=== PATIENT | female | born 1995 | race Caucasian/White ===

== ENCOUNTER 2022-06-20 08:07 | Inpatient (IN) | payer MEDICAID ==
[~2022-06-20] VITALS: Ht 165.1 cm; Wt 74.4 kg
[2022-06-20] MEDS ORDERED: NALOXONE HCL 0.4 MG/ML 1ML VIAL IM PRN (09:30)
[2022-06-20] MEDS ORDERED: METHYLERGONOVINE MALEATE 0.2 MG/ML IM PRN (09:30)
[2022-06-20] MEDS ORDERED: OXYTOCIN 10 UNITS/ML 1ML ONE (10:27)
[2022-06-20] MEDS ORDERED: SODIUM CHLORIDE 0.9% 10ML VIAL ONE (10:27)
[2022-06-20] MEDS ORDERED: EPHEDRINE SULFATE 50MG/ML VIAL ONE (10:27)
[2022-06-20] MEDS ORDERED: ONDANSETRON HCL 4MG/2ML INJ ONE (10:27)
[2022-06-20] MEDS ORDERED: CEFAZOLIN SODIUM 1000MG/VIAL ONE (10:27)
[2022-06-20] MEDS ORDERED: PHENYLEPHRINE HCL 10 MG/ML 1ML (IV VIAL) IV ONE (10:27)
[2022-06-20] MEDS ORDERED: FENTANYL CITRATE/PF 50MCG/ML 2ML VIAL ONE (10:27)
[2022-06-20] MEDS ORDERED: MORPHINE SULFATE/PF 1MG/ML 10ML AMP ONE (10:27)
[2022-06-20] MEDS ORDERED: DIPHENHYDRAMINE 50MG/ML VIAL ONE (10:27)
[2022-06-20 10:55] LABS: BASOPHILS % 0.4 % (0.0-2.0); EOSINOPHILS % 0.5 % (0.0-5.0); HEMATOCRIT. 35.9 % (36.0-48.0); HEMOGLOBIN. 11.8 g/dL (12.0-16.0); LYMPHOCYTES % 19.1 % (20.0-50.0); MEAN CORPUSCULAR HEMOGLOBIN 29.5 pg (28.0-32.0); MEAN CORPUSCULAR VOLUME 89.6 fL (81.0-99.0); MEAN PLATELET VOLUME 8.1 fl (7.4-10.4); MONOCYTES % 5.6 % (2.0-8.0); NEUTROPHILS % 74.4 % (40.0-76.0); PLATELET 368 x1000/uL (130-400); RED BLOOD CELL COUNT 4.01 mill/uL (4.2-5.4); RED CELL DISTRIBUTION WIDTH 15.5 % (11.6-14.6)
[2022-06-20 11:07] LABS: INR 0.9; PARTIAL THROMBOPLASTIN TIME 29.6 sec (23.4-31.0)
[2022-06-20 11:14] LABS: CLARITY URINE CLOUDY (CLEAR); COLOR URINE YELLOW (YELLOW); KETONES URINE NEGATIVE (NEGATIVE); LEUKOCYTE ESTERASE URINE 3+ (NEGATIVE); NITRITE URINE NEGATIVE (NEGATIVE); OCCULT BLOOD URINE 1+ (NEGATIVE); PROTEIN URINE TRACE (NEGATIVE); UROBILINOGEN URINE 0.2 E.U./dL (0.2-1.0)
[2022-06-20 11:42] LABS: HEPATITIS B SURFACE ANTIGEN NEGATIVE
[2022-06-20] MEDS: LACTATED RINGERS 1,000 ML IV SCH (11:42)
[2022-06-20 12:06] LABS: *AMPHETAMINES SCREEN URINE NEGATIVE (NEGATIVE); *BARBITURATES SCREEN URINE NEGATIVE (NEGATIVE); *BENZODIAZEPINES SCREEN URINE NEGATIVE (NEGATIVE); *COCAINE SCREEN URINE NEGATIVE (NEGATIVE); CANNABINOID URINE SCREEN NEGATIVE (NEGATIVE); METHADONE URINE SCREEN NEGATIVE (NEGATIVE); OPIATES URINE SCREEN NEGATIVE (NEGATIVE); PHENCYCLIDINE URINE SCREEN NEGATIVE (NEGATIVE)
[2022-06-20] MEDS ORDERED: KETOROLAC 60MG/2ML VIAL IM ONE (14:28)
[2022-06-20] MEDS ORDERED: NALOXONE HCL 0.4 MG/ML 1ML VIAL IV PRN (14:45)
[2022-06-20] MEDS ORDERED: DIPHENHYDRAMINE 50MG/ML VIAL IV PRN (14:45)
[2022-06-20] MEDS: OXYTOCIN 30 UNITS/500ML NS PMX 500 ML IV SCH ×2 (17:14→20:54)
[2022-06-20 18:00] VITALS: BP 94/49
[2022-06-20 20:00] VITALS: BP 90/56
[2022-06-20] MEDS: KETOROLAC 30MG/ML VIAL IV SCH (20:13)
[2022-06-20] MEDS ORDERED: RHO(D) IMMUNE GLOBULIN 300 MCG/SYR IM PRN (23:00)
[2022-06-20] MEDS ORDERED: DIPHENHYDRAMINE 25MG CAPSULE PO PRN (23:00)
[2022-06-20] MEDS ORDERED: ONDANSETRON HCL 4MG/2ML INJ IV PRN (23:00)
[2022-06-20] MEDS ORDERED: HEMORRHOIDAL SUPP PR PRN (23:00)
[2022-06-20] MEDS ORDERED: OXYTOCIN 30 UNITS/500ML NS PMX 500 ML IV SCH (23:00)
[2022-06-20] MEDS ORDERED: OXYCODONE HCL/ACETAMINOPHEN 5/325MG TABLET PO PRN (23:00)
[2022-06-20] MEDS ORDERED: BISACODYL 10MG SUPP PR PRN (23:00)
[2022-06-20] MEDS ORDERED: LANOLIN OINT 7GM TUBE TOP PRN (23:00)
[2022-06-20] MEDS ORDERED: IBUPROFEN 400MG TABLET PO PRN (23:00)
[2022-06-20 23:30] VITALS: BP 91/53
[2022-06-21] MEDS: LACTATED RINGERS 1,000 ML IV SCH (01:12)
[2022-06-21] MEDS: KETOROLAC 30MG/ML VIAL IV SCH (03:08)
[2022-06-21 04:00] VITALS: BP 90/51
[2022-06-21 06:37] LABS: BASOPHILS % 0.3 % (0.0-2.0); EOSINOPHILS % 0.4 % (0.0-5.0); HEMATOCRIT. 24.2 % (36.0-48.0); HEMOGLOBIN. 7.9 g/dL (12.0-16.0); LYMPHOCYTES % 11.2 % (20.0-50.0); MEAN CORPUSCULAR HEMOGLOBIN 29.6 pg (28.0-32.0); MEAN CORPUSCULAR VOLUME 90.7 fL (81.0-99.0); MEAN PLATELET VOLUME 7.5 fl (7.4-10.4); MONOCYTES % 5.3 % (2.0-8.0); NEUTROPHILS % 82.8 % (40.0-76.0); PLATELET 283 x1000/uL (130-400); RED BLOOD CELL COUNT 2.67 mill/uL (4.2-5.4); RED CELL DISTRIBUTION WIDTH 15.7 % (11.6-14.6)
[2022-06-21] MEDS ORDERED: FERROUS SULFATE 325MG TABLET PO SCH (07:30)
[2022-06-21 08:00] VITALS: BP 94/53
[2022-06-21] MEDS: IBUPROFEN 800MG TABLET PO PRN ×2 (10:12→19:10)
[2022-06-21 16:30] VITALS: BP 95/54
[2022-06-21 19:30] VITALS: BP 99/62
[2022-06-21] MEDS: DOCUSATE SODIUM 100MG CAPSULE PO SCH (21:34)
[2022-06-21] MEDS: SIMETHICONE 80MG TABLET CHEW PO SCH (21:34)
[2022-06-21] MEDS: MAGNESIUM/ALUMINUM HYDROXIDE/SIMETHICONE 30ML UDC PO SCH (21:34)
[2022-06-22] MEDS: IBUPROFEN 800MG TABLET PO PRN ×3 (03:31→17:59)
[2022-06-22 04:00] VITALS: BP 99/56
[2022-06-22] MEDS: MAGNESIUM/ALUMINUM HYDROXIDE/SIMETHICONE 30ML UDC PO SCH ×3 (07:30→20:53)
[2022-06-22 08:00] VITALS: BP 96/58
[2022-06-22] MEDS: FERROUS SULFATE 325MG TABLET PO SCH ×3 (09:07→17:59)
[2022-06-22] MEDS: SIMETHICONE 80MG TABLET CHEW PO SCH ×4 (09:07→20:54)
[2022-06-22] MEDS: PRENATAL VIT/FE FUMARATE/FA TABLET PO SCH (09:07)
[2022-06-22 19:30] VITALS: BP 105/54
[2022-06-22] MEDS: DOCUSATE SODIUM 100MG CAPSULE PO SCH (20:54)
[2022-06-23] MEDS: IBUPROFEN 800MG TABLET PO PRN ×3 (00:01→15:09)
[2022-06-23] MEDS ORDERED: PENICILLIN G BENZATHINE 1,200,000 UNITS/2ML SYR IM NR (01:30)
[2022-06-23 04:00] VITALS: BP 100/58
[2022-06-23 08:00] VITALS: BP 109/54
[2022-06-23] MEDS: PRENATAL VIT/FE FUMARATE/FA TABLET PO SCH (08:05)
[2022-06-23] MEDS: SIMETHICONE 80MG TABLET CHEW PO SCH ×2 (08:05→15:09)
[2022-06-23] MEDS: MAGNESIUM/ALUMINUM HYDROXIDE/SIMETHICONE 30ML UDC PO SCH ×2 (08:05→15:09)
[2022-06-23] MEDS: FERROUS SULFATE 325MG TABLET PO SCH ×2 (08:06→15:09)
[2022-06-23] MEDS ORDERED: IBUP-2030 MT (09:37)
== END 2022-06-23 18:30 | disposition home or self-care (01) | DRG 540 ==
LOC: 8 EST LDRP 08:07 → 8EST 18:00
PROVIDERS: ADMIT Obstetrics & Gynecology; ATTEND Obstetrics & Gynecology
PROC: 10D00Z1 Extraction of Products of Conception, Low, Open Approach (ICD-10-PCS; principal; 2022-06-20)
DX: O32.1XX0 Maternal care for breech presentation, not applicable or unspecified (principal); D62 Acute posthemorrhagic anemia; Z20.822 Contact with and (suspected) exposure to COVID-19; Z3A.39 39 weeks gestation of pregnancy; Z37.0 Single live birth; O99.03 Anemia complicating the puerperium
CPT/HCPCS: 36415; 76805; 76818; 80305; 81003; 85025; 86592; 86593; 86703; 86762; 86780; 86850; 86900; 87340; 87426; 88307; 99281; J0561; J0690; J1200; J1885; J2274; J2370; J2405; J3010; J3490; J7120; J2590